=== PATIENT | female | born 1935 | race Caucasian/White ===

== ENCOUNTER 2017-04-08 18:04 | Inpatient (IN) | payer OTHER ==
[~2017-04-08 18:04] MED LIST: ETOMIDATE 20 MG INJ; ROCURONIUM 50 MG INJ
[2017-04-08] MEDS ORDERED: NORepinephrine 8MG/250 ML (PMX 250 ML IV (18:30)
[2017-04-08] MEDS: SOD CHLORIDE 0.9% 2,170 ML IV (18:40)
[2017-04-08 18:41] LABS: ADD MAN DIFF? NO
[2017-04-08 18:44] LABS: BASOPHIL # 0.1 10^3/ul (0.0-0.1); BASOPHILS % 0.4 % (0.0-2.0); EOSINOPHILS # 0.5 10^3/ul (0.0-0.5); EOSINOPHILS % 2.8 % (0.0-7.0); HEMATOCRIT 34.7 % (37.0-47.0); HEMOGLOBIN 11.9 g/dl (12.0-16.0); LYMPHOCYTES # 1.8 10^3/ul (0.8-2.9); LYMPHOCYTES % 10.7 % (15.0-51.0); MEAN CORPUSCULAR HEMOGLOBIN 29.5 pg (29.0-33.0); MEAN CORPUSCULAR HGB CONC 34.3 g/dl (32.0-37.0); MEAN CORPUSCULAR VOLUME 85.9 fl (82.0-101.0); MEAN PLATELET VOLUME 8.5 fl (7.4-10.4); MONOCYTE # 1.2 10^3/ul (0.3-0.9); MONOCYTES % 7.1 % (0.0-11.0); NEUTROPHILS % 77.7 % (39.0-77.0); PLATELET COUNT 335 10^3/UL (140-415); RED BLOOD COUNT 4.04 10^6/ul (4.20-5.40); RED CELL DISTRIBUTION WIDTH 14.4 % (11.5-14.5)
[2017-04-08 18:44] LABS: WHITE BLOOD COUNT 16.7 10^3/ul (4.8-10.8)
[2017-04-08 18:53] LABS: ADD UMIC YES; UR ASCORBIC ACID NEGATIVE (NEGATIVE); UR BILIRUBIN (Dip) NEGATIVE (NEGATIVE); UR BLOOD (Dip) 1+ mg/dL (NEGATIVE); UR CLARITY CLEAR (CLEAR); UR COLOR YELLOW (YELLOW); UR GLUCOSE (Dip) NEGATIVE (NEGATIVE); UR KETONES (Dip) NEGATIVE (NEGATIVE); UR LEUKOCYTE ESTERASE (Dip) NEGATIVE Leu/ul (NEGATIVE); UR NITRITE (Dip) NEGATIVE (NEGATIVE); UR RBC 1 /HPF (0-5); UR SPECIFIC GRAVITY (Dip) 1.006 (1.003-1.030); UR TOTAL PROTEIN (Dip) NEGATIVE (NEGATIVE); UR UROBILINOGEN (Dip) NEGATIVE (NEGATIVE); UR WBC 1 /HPF (0-5)
[2017-04-08 19:02] LABS: AADO2 Arterial 182.9 mmHg (7.0-24.0); Allen Test ACCEPTAB; Arterial Blood Gas Oxygen Sat 99.4 mmHG (95.0-100.0); Arterial COHb 0.3 % (0.0-3.0); Arterial Fraction of Oxyhgb 98.9 % (93.0-99.0); Arterial HCO3 24.8 mmol/L (22.0-26.0); Arterial MetHb 0.2 % (0.0-1.5); Arterial Total Hemglobin 10.5 g/dl (12.0-18.0); Arterial pCO2 32.4 mmhg (35-45); MODE VENT - AC; Site Left Radial
[2017-04-08 19:06] LABS: INR 1.02; PROTIME 13.5 Sec (11.9-14.9); PT RATIO 1.1
[2017-04-08 19:08] LABS: ALANINE AMINOTRANSFERASE 27 IU/L (13-69); ALBUMIN 3.1 g/dl (3.3-4.9); ALBUMIN/GLOBULIN RATIO 0.96; ALKALINE PHOSPHATASE 75 IU/L (42-121); ANION GAP 12 (8-16); ASPARTATE AMINO TRANSFERASE 23 IU/L (15-46); BILIRUBIN,INDIRECT 0.2 mg/dl (0-1.1); BILIRUBIN,TOTAL 0.2 mg/dl (0.2-1.3); BLOOD UREA NITROGEN 14 mg/dl (7-20); CALCIUM 8.5 mg/dl (8.4-10.2); CARBON DIOXIDE 32 mmol/L (21-31); CHLORIDE 81 mmol/L (97-110); CREATININE 0.79 mg/dl (0.44-1.00); GLUCOSE 124 mg/dl (70-220); POTASSIUM 3.8 mmol/L (3.5-5.1); SODIUM 121 mmol/L (135-144); TOTAL PROTEIN 6.3 g/dl (6.1-8.1)
[2017-04-08 19:14] LABS: PARTIAL THROMBOPLASTIN TIME 32.1 Sec (25.0-35.0)
[2017-04-08 19:22] LABS: TROPONIN-I < 0.012 ng/ml (0.00-0.12)
[2017-04-08] MEDS: VANCOMYCIN 1 GM (PMX) 250 ML IVPB (19:30)
[2017-04-08] MEDS: MEROPENEM 500MG/50 ML (PMX) 50 ML IVPB (19:45)
[2017-04-08] MEDS: SOD CHLORIDE 0.9% 1,000 ML IV (20:07)
[2017-04-08 20:30] LABS: LACTIC ACID 0.7 mmol/L (0.5-2.0)
[2017-04-08] MEDS ORDERED: ACETAMINOPHEN 650 MG SUPP PR (20:30)
[2017-04-08] MEDS: MIDAZOLAM (DRIP) 50 mg/50 mL 50 ML IV (20:46)
[2017-04-08 21:09] LABS: B-TYPE NATRIURETIC PEPTIDE 171 PG/ML (0-450)
[2017-04-08 22:48] LABS: LACTIC ACID 1.7 mmol/L (0.5-2.0)
[2017-04-08 23:23] LABS: AADO2 Arterial 114.5 mmHg (7.0-24.0); Allen Test ACCEPTAB; Arterial Base Excess 0.4 mmol/L (-3.0-3); Arterial Blood Gas Oxygen Sat 98.3 mmHG (95.0-100.0); Arterial COHb 0.3 % (0.0-3.0); Arterial Fraction of Oxyhgb 97.8 % (93.0-99.0); Arterial HCO3 24.1 mmol/L (22.0-26.0); Arterial MetHb 0.2 % (0.0-1.5); Arterial Total Hemglobin 11.4 g/dl (12.0-18.0); Arterial pCO2 35.6 mmhg (35-45); MODE VENT - AC; Site Left Radial
[2017-04-09 00:01] LABS: ANION GAP 11 (8-16); BLOOD UREA NITROGEN 12 mg/dl (7-20); CALCIUM 7.6 mg/dl (8.4-10.2); CARBON DIOXIDE 24 mmol/L (21-31); CHLORIDE 95 mmol/L (97-110); CREATININE 0.53 mg/dl (0.44-1.00); GLUCOSE 134 mg/dl (70-220); POTASSIUM 3.2 mmol/L (3.5-5.1); SODIUM 127 mmol/L (135-144)
[2017-04-09 01:36] LABS: LACTIC ACID 1.7 mmol/L (0.5-2.0)
[2017-04-09 01:38] LABS: ANION GAP 10 (8-16); BLOOD UREA NITROGEN 12 mg/dl (7-20); CALCIUM 7.6 mg/dl (8.4-10.2); CARBON DIOXIDE 22 mmol/L (21-31); CHLORIDE 97 mmol/L (97-110); CREATININE 0.51 mg/dl (0.44-1.00); GLUCOSE 136 mg/dl (70-220); POTASSIUM 3.3 mmol/L (3.5-5.1); SODIUM 126 mmol/L (135-144)
[2017-04-09] MEDS ORDERED: VANCOMYCIN IV PER PHARMACY XX (02:30)
[2017-04-09 04:35] LABS: ANION GAP 10 (8-16); BLOOD UREA NITROGEN 12 mg/dl (7-20); CALCIUM 7.2 mg/dl (8.4-10.2); CARBON DIOXIDE 25 mmol/L (21-31); CHLORIDE 98 mmol/L (97-110); CREATININE 0.58 mg/dl (0.44-1.00); GLUCOSE 106 mg/dl (70-220); POTASSIUM 3.3 mmol/L (3.5-5.1); SODIUM 130 mmol/L (135-144)
[2017-04-09] MEDS: SOD CHLORIDE 0.9% 1,000 ML IV ×2 (06:46→20:03)
[2017-04-09] MEDS: PANTOPRAZOLE 40 MG INJ IV (06:52)
[2017-04-09 07:00] LABS: ANION GAP 10 (8-16); BLOOD UREA NITROGEN 12 mg/dl (7-20); CALCIUM 7.6 mg/dl (8.4-10.2); CARBON DIOXIDE 24 mmol/L (21-31); CHLORIDE 99 mmol/L (97-110); CREATININE 0.54 mg/dl (0.44-1.00); GLUCOSE 102 mg/dl (70-220); POTASSIUM 3.5 mmol/L (3.5-5.1); SODIUM 129 mmol/L (135-144)
[2017-04-09 07:19] LABS: AADO2 Arterial 84.5 mmHg (7.0-24.0); Allen Test ACCEPTAB; Arterial Base Excess -0.1 mmol/L (-3.0-3); Arterial Blood Gas Oxygen Sat 96.1 mmHG (95.0-100.0); Arterial COHb 0.1 % (0.0-3.0); Arterial Fraction of Oxyhgb 95.8 % (93.0-99.0); Arterial HCO3 23.9 mmol/L (22.0-26.0); Arterial MetHb 0.2 % (0.0-1.5); Arterial Total Hemglobin 11.4 g/dl (12.0-18.0); Arterial pCO2 36.6 mmhg (35-45); Blood Gas Low PEEP Setting 0 cmH2O; MODE VENT - AC; Site Left Radial
[2017-04-09 07:47] LABS: ANION GAP 9 (8-16); BLOOD UREA NITROGEN 12 mg/dl (7-20); CALCIUM 7.7 mg/dl (8.4-10.2); CARBON DIOXIDE 25 mmol/L (21-31); CHLORIDE 98 mmol/L (97-110); CREATININE 0.49 mg/dl (0.44-1.00); GLUCOSE 117 mg/dl (70-220); SODIUM 129 mmol/L (135-144)
[2017-04-09] MEDS ORDERED: VANCOMYCIN 1.5 GM in DEXTROSE 5% 500 ML IVPB (08:00)
[2017-04-09] MEDS: VANCOMYCIN 1.25 GM in SOD CHLORIDE 0.45% 250 ML IVPB (10:22)
[2017-04-09] MEDS ORDERED: POTASSIUM CHLORIDE 50 ML IVPB (11:00)
[2017-04-09] MEDS: POTASSIUM CHLORIDE 50 ML IVPB ×2 (11:41→15:13)
[2017-04-09] MEDS: MEROPENEM 1 GM/50ML(PMX) 50 ML IVPB ×2 (15:13→21:40)
[2017-04-09] MEDS: METHYLPREDNISOLONE 40 MG INJ IV ×2 (15:13→21:40)
[2017-04-09] MEDS: MIDAZOLAM (DRIP) 50 mg/50 mL 50 ML IV (21:48)
[2017-04-10] MEDS: METHYLPREDNISOLONE 40 MG INJ IV ×3 (05:02→21:42)
[2017-04-10] MEDS: PANTOPRAZOLE 40 MG INJ IV (05:02)
[2017-04-10 05:55] LABS: ADD MAN DIFF? NO
[2017-04-10 06:01] LABS: BASOPHILS % 0.2 % (0.0-2.0); HEMATOCRIT 31.4 % (37.0-47.0); HEMOGLOBIN 10.5 g/dl (12.0-16.0); LYMPHOCYTES % 7.7 % (15.0-51.0); MEAN CORPUSCULAR HEMOGLOBIN 28.7 pg (29.0-33.0); MEAN CORPUSCULAR HGB CONC 33.4 g/dl (32.0-37.0); MEAN CORPUSCULAR VOLUME 85.8 fl (82.0-101.0); MEAN PLATELET VOLUME 8.7 fl (7.4-10.4); MONOCYTE # 0.2 10^3/ul (0.3-0.9); MONOCYTES % 1.3 % (0.0-11.0); NEUTROPHIL # 11.4 10^3/ul (1.6-7.5); NEUTROPHILS % 89.6 % (39.0-77.0); PLATELET COUNT 194 10^3/UL (140-415); RED BLOOD COUNT 3.66 10^6/ul (4.20-5.40); RED CELL DISTRIBUTION WIDTH 14.9 % (11.5-14.5)
[2017-04-10 06:01] LABS: WHITE BLOOD COUNT 12.7 10^3/ul (4.8-10.8)
[2017-04-10 06:25] LABS: ANION GAP 9 (8-16); BLOOD UREA NITROGEN 10 mg/dl (7-20); CALCIUM 7.7 mg/dl (8.4-10.2); CARBON DIOXIDE 26 mmol/L (21-31); CHLORIDE 101 mmol/L (97-110); CREATININE 0.54 mg/dl (0.44-1.00); GLUCOSE 151 mg/dl (70-220); MAGNESIUM 1.8 mg/dl (1.7-2.5); PHOSPHORUS 3.1 mg/dl (2.5-4.9); SODIUM 133 mmol/L (135-144)
[2017-04-10 08:20] LABS: AADO2 Arterial 63.9 mmHg (7.0-24.0); Allen Test ACCEPTAB; Arterial Base Excess 2.3 mmol/L (-3.0-3); Arterial COHb 0.1 % (0.0-3.0); Arterial HCO3 25.2 mmol/L (22.0-26.0); Arterial MetHb 0 % (0.0-1.5); Arterial Total Hemglobin 12.1 g/dl (12.0-18.0); Arterial pCO2 34.2 mmhg (35-45); Blood Gas Low PEEP Setting 0 cmH2O; MODE VENT - AC; Site Right Radial
[2017-04-10] MEDS: MEROPENEM 1 GM/50ML(PMX) 50 ML IVPB ×2 (08:54→21:01)
[2017-04-10] MEDS: VANCOMYCIN 1.25 GM in SOD CHLORIDE 0.45% 250 ML IVPB (08:54)
[2017-04-10] MEDS: MAGNESIUM SULFATE 1 GM/D5W 100 ML IVPB (08:54)
[2017-04-10] MEDS: POTASSIUM CHLORIDE 50 ML IVPB ×3 (11:00→13:00)
[2017-04-10] MEDS: SOD CHLORIDE 0.9% 1,000 ML IV ×2 (18:00→21:43)
[2017-04-10] MEDS: ALBUTEROL HFA 8 GM INHALER INH (20:04)
[2017-04-10] MEDS: MIDAZOLAM (DRIP) 50 mg/50 mL 50 ML IV (21:02)
[2017-04-11] MEDS: PANTOPRAZOLE 40 MG INJ IV (05:32)
[2017-04-11] MEDS: METHYLPREDNISOLONE 40 MG INJ IV ×3 (05:32→21:51)
[2017-04-11 05:46] LABS: ADD MAN DIFF? NO
[2017-04-11 05:52] LABS: WHITE BLOOD COUNT 19.9 10^3/ul (4.8-10.8)
[2017-04-11 05:52] LABS: BASOPHILS % 0.1 % (0.0-2.0); HEMATOCRIT 30.8 % (37.0-47.0); HEMOGLOBIN 10.4 g/dl (12.0-16.0); LYMPHOCYTES # 1.3 10^3/ul (0.8-2.9); LYMPHOCYTES % 6.4 % (15.0-51.0); MEAN CORPUSCULAR HEMOGLOBIN 29.3 pg (29.0-33.0); MEAN CORPUSCULAR HGB CONC 33.8 g/dl (32.0-37.0); MEAN CORPUSCULAR VOLUME 86.8 fl (82.0-101.0); MEAN PLATELET VOLUME 9.6 fl (7.4-10.4); MONOCYTE # 0.6 10^3/ul (0.3-0.9); NEUTROPHIL # 17.8 10^3/ul (1.6-7.5); NEUTROPHILS % 89.5 % (39.0-77.0); PLATELET COUNT 231 10^3/UL (140-415); RED BLOOD COUNT 3.55 10^6/ul (4.20-5.40); RED CELL DISTRIBUTION WIDTH 15.3 % (11.5-14.5)
[2017-04-11 06:41] LABS: ANION GAP 11 (8-16); BLOOD UREA NITROGEN 17 mg/dl (7-20); CALCIUM 7.9 mg/dl (8.4-10.2); CARBON DIOXIDE 28 mmol/L (21-31); CHLORIDE 104 mmol/L (97-110); CREATININE 0.49 mg/dl (0.44-1.00); GLUCOSE 162 mg/dl (70-220); MAGNESIUM 2.1 mg/dl (1.7-2.5); PHOSPHORUS 2.3 mg/dl (2.5-4.9); POTASSIUM 4.5 mmol/L (3.5-5.1); SODIUM 138 mmol/L (135-144)
[2017-04-11] MEDS: MEROPENEM 1 GM/50ML(PMX) 50 ML IVPB ×2 (08:48→21:51)
[2017-04-11] MEDS: VANCOMYCIN 1.25 GM in SOD CHLORIDE 0.45% 250 ML IVPB (09:18)
[2017-04-11] MEDS: SOD CHLORIDE 0.9% 1,000 ML IV (10:16)
[2017-04-11] MEDS ORDERED: morphine 2 MG INJ (10:51)
[2017-04-11] MEDS: morphine 2 MG INJ IV (10:54)
[2017-04-11] MEDS: LORAZEPAM 2 MG INJ IV ×2 (19:36→23:20)
[2017-04-11] MEDS: ALBUTEROL HFA 8 GM INHALER INH (19:50)
[2017-04-12] MEDS: METHYLPREDNISOLONE 40 MG INJ IV ×3 (05:44→21:16)
[2017-04-12] MEDS: PANTOPRAZOLE 40 MG INJ IV (05:44)
[2017-04-12 06:22] LABS: ADD MAN DIFF? NO
[2017-04-12 06:30] LABS: BASOPHILS % 0.1 % (0.0-2.0); HEMATOCRIT 32.1 % (37.0-47.0); HEMOGLOBIN 10.7 g/dl (12.0-16.0); LYMPHOCYTES # 0.9 10^3/ul (0.8-2.9); LYMPHOCYTES % 6.2 % (15.0-51.0); MEAN CORPUSCULAR HEMOGLOBIN 29.2 pg (29.0-33.0); MEAN CORPUSCULAR HGB CONC 33.3 g/dl (32.0-37.0); MEAN CORPUSCULAR VOLUME 87.5 fl (82.0-101.0); MEAN PLATELET VOLUME 9.7 fl (7.4-10.4); MONOCYTE # 0.6 10^3/ul (0.3-0.9); MONOCYTES % 4.2 % (0.0-11.0); NEUTROPHIL # 13.2 10^3/ul (1.6-7.5); NEUTROPHILS % 88.4 % (39.0-77.0); PLATELET COUNT 207 10^3/UL (140-415); RED BLOOD COUNT 3.67 10^6/ul (4.20-5.40); RED CELL DISTRIBUTION WIDTH 15.3 % (11.5-14.5)
[2017-04-12 06:30] LABS: WHITE BLOOD COUNT 14.9 10^3/ul (4.8-10.8)
[2017-04-12 07:02] LABS: ANION GAP 10 (8-16); BLOOD UREA NITROGEN 18 mg/dl (7-20); CALCIUM 7.9 mg/dl (8.4-10.2); CARBON DIOXIDE 29 mmol/L (21-31); CREATININE 0.41 mg/dl (0.44-1.00); GLUCOSE 171 mg/dl (70-220); MAGNESIUM 1.9 mg/dl (1.7-2.5); PHOSPHORUS 2.4 mg/dl (2.5-4.9); POTASSIUM 4.1 mmol/L (3.5-5.1); SODIUM 138 mmol/L (135-144)
[2017-04-12 07:12] LABS: CHLORIDE 103 mmol/L (97-110)
[2017-04-12 08:52] LABS: VANCOMYCIN,TROUGH 6.2 ug/ml (10.0-20.0)
[2017-04-12] MEDS: MEROPENEM 1 GM/50ML(PMX) 50 ML IVPB ×2 (09:27→21:16)
[2017-04-12] MEDS: VANCOMYCIN 1.25 GM in SOD CHLORIDE 0.45% 250 ML IVPB (09:27)
[2017-04-12] MEDS: SOD CHLORIDE 0.9% 1,000 ML IV (09:28)
[2017-04-12 11:06] LABS: Allen Test ACCEPTAB; Arterial Base Excess 4.9 mmol/L (-3.0-3); Arterial Blood Gas Oxygen Sat 97.1 mmHG (95.0-100.0); Arterial COHb 0.3 % (0.0-3.0); Arterial Fraction of Oxyhgb 96.6 % (93.0-99.0); Arterial HCO3 28.9 mmol/L (22.0-26.0); Arterial MetHb 0.2 % (0.0-1.5); Arterial pCO2 40.2 mmhg (35-45); Blood Gas PS 10; MODE VENT - CPAP; Site Right Radial
[2017-04-12] MEDS: VANCOMYCIN 750 MG in DEXTROSE 5% 150 ML IVPB (23:14)
[2017-04-13 04:55] LABS: ADD MAN DIFF? NO
[2017-04-13 04:59] LABS: BASOPHILS % 0.1 % (0.0-2.0); HEMATOCRIT 31.1 % (37.0-47.0); HEMOGLOBIN 10.5 g/dl (12.0-16.0); LYMPHOCYTES # 1.1 10^3/ul (0.8-2.9); LYMPHOCYTES % 9.5 % (15.0-51.0); MEAN CORPUSCULAR HEMOGLOBIN 29.3 pg (29.0-33.0); MEAN CORPUSCULAR HGB CONC 33.8 g/dl (32.0-37.0); MEAN CORPUSCULAR VOLUME 86.9 fl (82.0-101.0); MEAN PLATELET VOLUME 9.8 fl (7.4-10.4); MONOCYTE # 0.6 10^3/ul (0.3-0.9); NEUTROPHIL # 9.5 10^3/ul (1.6-7.5); NEUTROPHILS % 83.7 % (39.0-77.0); PLATELET COUNT 197 10^3/UL (140-415); RED BLOOD COUNT 3.58 10^6/ul (4.20-5.40); RED CELL DISTRIBUTION WIDTH 15.3 % (11.5-14.5)
[2017-04-13 04:59] LABS: WHITE BLOOD COUNT 11.3 10^3/ul (4.8-10.8)
[2017-04-13 05:28] LABS: ALBUMIN 2.4 g/dl (3.3-4.9); ANION GAP 7 (8-16); BLOOD UREA NITROGEN 18 mg/dl (7-20); CALCIUM 7.8 mg/dl (8.4-10.2); CARBON DIOXIDE 30 mmol/L (21-31); CHLORIDE 102 mmol/L (97-110); CREATININE 0.38 mg/dl (0.44-1.00); GLUCOSE 126 mg/dl (70-220); MAGNESIUM 1.9 mg/dl (1.7-2.5); PHOSPHORUS 2.7 mg/dl (2.5-4.9); POTASSIUM 4.1 mmol/L (3.5-5.1); SODIUM 135 mmol/L (135-144)
[2017-04-13] MEDS: PANTOPRAZOLE 40 MG INJ IV (06:10)
[2017-04-13] MEDS: METHYLPREDNISOLONE 40 MG INJ IV ×2 (06:10→21:11)
[2017-04-13] MEDS: MEROPENEM 1 GM/50ML(PMX) 50 ML IVPB ×2 (08:48→21:12)
[2017-04-13] MEDS: POLYETHYLENE GLYCOL 17 GM PACKET GTB (08:48)
[2017-04-13] MEDS: SOD CHLORIDE 0.9% 1,000 ML IV (09:24)
[2017-04-13] MEDS: VANCOMYCIN 750 MG in DEXTROSE 5% 150 ML IVPB ×2 (11:28→22:37)
[2017-04-13] MEDS ORDERED: ALBUTEROL/IPRATROPIUM (NEB) 3 ML AMP (12:18)
[2017-04-13] MEDS: ALBUTEROL/IPRATROPIUM (NEB) 3 ML AMP HHN ×2 (12:21→19:11)
[2017-04-13 16:52] LABS: AADO2 Arterial 78.7 mmHg (7.0-24.0); AADO2 Arterial 80.6 mmHg (7.0-24.0); Allen Test ACCEPTAB; Arterial Base Excess 4.8 mmol/L (-3.0-3); Arterial Base Excess 6.4 mmol/L (-3.0-3); Arterial Blood Gas Oxygen Sat 95.9 mmHG (95.0-100.0); Arterial COHb 0.3 % (0.0-3.0); Arterial Fraction of Oxyhgb 95.4 % (93.0-99.0); Arterial Fraction of Oxyhgb 96.6 % (93.0-99.0); Arterial HCO3 27.7 mmol/L (22.0-26.0); Arterial HCO3 30.9 mmol/L (22.0-26.0); Arterial MetHb 0.1 % (0.0-1.5); Arterial MetHb 0.2 % (0.0-1.5); Arterial Total Hemglobin 11.1 g/dl (12.0-18.0); Arterial Total Hemglobin 13.1 g/dl (12.0-18.0); Arterial pCO2 34.9 mmhg (35-45); Arterial pCO2 43.9 mmhg (35-45); Blood Gas PS 10; MODE VENT - AC; MODE VENT - CPAP; Site Right Radial
[2017-04-13] MEDS: DEXTROSE 5%-0.45% NACL 1,000 ML IV (17:26)
[2017-04-14] MEDS: ALBUTEROL/IPRATROPIUM (NEB) 3 ML AMP HHN ×4 (00:59→21:01)
[2017-04-14] MEDS: SOD CHLORIDE 0.9% 1,000 ML IV (04:28)
[2017-04-14 05:03] LABS: ADD MAN DIFF? NO
[2017-04-14 05:07] LABS: BASOPHILS % 0.2 % (0.0-2.0); HEMATOCRIT 37.2 % (37.0-47.0); HEMOGLOBIN 12.5 g/dl (12.0-16.0); LYMPHOCYTES # 0.9 10^3/ul (0.8-2.9); LYMPHOCYTES % 7.2 % (15.0-51.0); MEAN CORPUSCULAR HGB CONC 33.6 g/dl (32.0-37.0); MEAN CORPUSCULAR VOLUME 86.3 fl (82.0-101.0); MONOCYTE # 0.5 10^3/ul (0.3-0.9); MONOCYTES % 3.7 % (0.0-11.0); NEUTROPHIL # 10.5 10^3/ul (1.6-7.5); NEUTROPHILS % 86.3 % (39.0-77.0); PLATELET COUNT 256 10^3/UL (140-415); RED BLOOD COUNT 4.31 10^6/ul (4.20-5.40); RED CELL DISTRIBUTION WIDTH 15.3 % (11.5-14.5)
[2017-04-14 05:07] LABS: WHITE BLOOD COUNT 12.2 10^3/ul (4.8-10.8)
[2017-04-14 05:23] LABS: ALBUMIN 2.8 g/dl (3.3-4.9); ANION GAP 14 (8-16); BLOOD UREA NITROGEN 14 mg/dl (7-20); CALCIUM 8.1 mg/dl (8.4-10.2); CARBON DIOXIDE 31 mmol/L (21-31); CHLORIDE 98 mmol/L (97-110); GLUCOSE 132 mg/dl (70-220); MAGNESIUM 1.9 mg/dl (1.7-2.5); PHOSPHORUS 3.5 mg/dl (2.5-4.9); POTASSIUM 3.8 mmol/L (3.5-5.1); SODIUM 139 mmol/L (135-144)
[2017-04-14] MEDS: PANTOPRAZOLE 40 MG INJ IV (05:54)
[2017-04-14] MEDS: DEXTROSE 5%-0.45% NACL 1,000 ML IV ×2 (06:20→19:40)
[2017-04-14] MEDS: POLYETHYLENE GLYCOL 17 GM PACKET GTB (09:00)
[2017-04-14] MEDS: METHYLPREDNISOLONE 40 MG INJ IV ×2 (09:38→20:51)
[2017-04-14] MEDS: MEROPENEM 1 GM/50ML(PMX) 50 ML IVPB ×2 (09:38→20:51)
[2017-04-14 11:25] LABS: VANCOMYCIN,TROUGH 11.7 ug/ml (10.0-20.0)
[2017-04-14] MEDS: VANCOMYCIN 750 MG in DEXTROSE 5% 150 ML IVPB ×2 (11:43→23:03)
[2017-04-15] MEDS: ALBUTEROL/IPRATROPIUM (NEB) 3 ML AMP HHN ×4 (02:36→20:03)
[2017-04-15] MEDS: PANTOPRAZOLE 40 MG INJ IV (05:22)
[2017-04-15] MEDS: LORAZEPAM 2 MG INJ IV (05:22)
[2017-04-15 06:16] LABS: ADD MAN DIFF? NO
[2017-04-15 06:27] LABS: WHITE BLOOD COUNT 12.3 10^3/ul (4.8-10.8)
[2017-04-15 06:27] LABS: BASOPHIL # 0.1 10^3/ul (0.0-0.1); BASOPHILS % 0.5 % (0.0-2.0); HEMATOCRIT 39.2 % (37.0-47.0); HEMOGLOBIN 12.9 g/dl (12.0-16.0); LYMPHOCYTES # 1.1 10^3/ul (0.8-2.9); MEAN CORPUSCULAR HEMOGLOBIN 28.8 pg (29.0-33.0); MEAN CORPUSCULAR HGB CONC 32.9 g/dl (32.0-37.0); MEAN CORPUSCULAR VOLUME 87.5 fl (82.0-101.0); MEAN PLATELET VOLUME 9.6 fl (7.4-10.4); MONOCYTE # 0.7 10^3/ul (0.3-0.9); MONOCYTES % 5.7 % (0.0-11.0); NEUTROPHIL # 10.1 10^3/ul (1.6-7.5); NEUTROPHILS % 82.3 % (39.0-77.0); PLATELET COUNT 309 10^3/UL (140-415); RED BLOOD COUNT 4.48 10^6/ul (4.20-5.40)
[2017-04-15 06:48] LABS: ALBUMIN 2.7 g/dl (3.3-4.9); ANION GAP 10 (8-16); BLOOD UREA NITROGEN 17 mg/dl (7-20); CALCIUM 7.9 mg/dl (8.4-10.2); CARBON DIOXIDE 32 mmol/L (21-31); CHLORIDE 97 mmol/L (97-110); CREATININE 0.42 mg/dl (0.44-1.00); GLUCOSE 144 mg/dl (70-220); PHOSPHORUS 3.5 mg/dl (2.5-4.9); POTASSIUM 3.6 mmol/L (3.5-5.1); SODIUM 135 mmol/L (135-144)
[2017-04-15] MEDS: DEXTROSE 5%-0.45% NACL 1,000 ML IV ×3 (09:00→21:26)
[2017-04-15] MEDS: POLYETHYLENE GLYCOL 17 GM PACKET GTB ×2 (09:00→09:33)
[2017-04-15] MEDS: METHYLPREDNISOLONE 40 MG INJ IV ×2 (09:33→20:46)
[2017-04-15] MEDS: MEROPENEM 1 GM/50ML(PMX) 50 ML IVPB ×2 (09:33→21:26)
[2017-04-15] MEDS: ENOXAPARIN 40 MG/0.4 ML SYG SC (10:00)
[2017-04-15] MEDS: VANCOMYCIN 750 MG in DEXTROSE 5% 150 ML IVPB ×2 (11:25→22:40)
[2017-04-16] MEDS: ALBUTEROL/IPRATROPIUM (NEB) 3 ML AMP HHN ×4 (02:35→20:33)
[2017-04-16] MEDS: PANTOPRAZOLE 40 MG INJ IV (05:20)
[2017-04-16 06:53] LABS: ADD MAN DIFF? NO
[2017-04-16 06:57] LABS: BASOPHILS % 0.3 % (0.0-2.0); HEMATOCRIT 38.4 % (37.0-47.0); HEMOGLOBIN 12.7 g/dl (12.0-16.0); LYMPHOCYTES % 6.8 % (15.0-51.0); MEAN CORPUSCULAR HEMOGLOBIN 28.9 pg (29.0-33.0); MEAN CORPUSCULAR HGB CONC 33.1 g/dl (32.0-37.0); MEAN CORPUSCULAR VOLUME 87.3 fl (82.0-101.0); MEAN PLATELET VOLUME 9.5 fl (7.4-10.4); MONOCYTE # 0.8 10^3/ul (0.3-0.9); MONOCYTES % 5.4 % (0.0-11.0); NEUTROPHIL # 12.6 10^3/ul (1.6-7.5); NEUTROPHILS % 85.4 % (39.0-77.0); PLATELET COUNT 304 10^3/UL (140-415); RED CELL DISTRIBUTION WIDTH 14.9 % (11.5-14.5)
[2017-04-16 06:57] LABS: WHITE BLOOD COUNT 14.8 10^3/ul (4.8-10.8)
[2017-04-16 07:34] LABS: ANION GAP 8 (8-16); BLOOD UREA NITROGEN 21 mg/dl (7-20); CALCIUM 7.9 mg/dl (8.4-10.2); CARBON DIOXIDE 31 mmol/L (21-31); CHLORIDE 95 mmol/L (97-110); CREATININE 0.41 mg/dl (0.44-1.00); GLUCOSE 211 mg/dl (70-220); POTASSIUM 3.7 mmol/L (3.5-5.1); SODIUM 130 mmol/L (135-144)
[2017-04-16] MEDS: POLYETHYLENE GLYCOL 17 GM PACKET GTB (09:00)
[2017-04-16] MEDS: METHYLPREDNISOLONE 40 MG INJ IV (09:11)
[2017-04-16] MEDS: MEROPENEM 1 GM/50ML(PMX) 50 ML IVPB ×2 (09:14→20:22)
[2017-04-16] MEDS: ENOXAPARIN 40 MG/0.4 ML SYG SC (10:21)
[2017-04-16] MEDS: VANCOMYCIN 750 MG in DEXTROSE 5% 150 ML IVPB (11:15)
[2017-04-16] MEDS: DEXTROSE 5%-0.45% NACL 1,000 ML IV ×2 (11:17→23:26)
[2017-04-16] MEDS: BARIUM SULFATE 135 ML (E-Z HD) PO (12:09)
[2017-04-16] MEDS ORDERED: ONDANSETRON 4 MG INJ IV (17:30)
[2017-04-16 18:41] LABS: LACTIC ACID 1.7 mmol/L (0.5-2.0)
[2017-04-17] MEDS: DEXTROSE 5%-0.45% NACL 1,000 ML IV ×2 (01:00→14:08)
[2017-04-17] MEDS: ALBUTEROL/IPRATROPIUM (NEB) 3 ML AMP HHN ×4 (02:20→20:19)
[2017-04-17] MEDS: PANTOPRAZOLE 40 MG INJ IV (05:21)
[2017-04-17 07:41] LABS: ADD MAN DIFF? NO
[2017-04-17 07:44] LABS: BASOPHILS % 0.2 % (0.0-2.0); EOSINOPHILS # 0.3 10^3/ul (0.0-0.5); EOSINOPHILS % 1.9 % (0.0-7.0); HEMATOCRIT 36.1 % (37.0-47.0); LYMPHOCYTES # 1.3 10^3/ul (0.8-2.9); LYMPHOCYTES % 9.6 % (15.0-51.0); MEAN CORPUSCULAR HEMOGLOBIN 29.3 pg (29.0-33.0); MEAN CORPUSCULAR HGB CONC 33.2 g/dl (32.0-37.0); MEAN CORPUSCULAR VOLUME 88.3 fl (82.0-101.0); MEAN PLATELET VOLUME 9.4 fl (7.4-10.4); MONOCYTES % 6.9 % (0.0-11.0); NEUTROPHIL # 10.9 10^3/ul (1.6-7.5); NEUTROPHILS % 77.5 % (39.0-77.0); PLATELET COUNT 263 10^3/UL (140-415); RED BLOOD COUNT 4.09 10^6/ul (4.20-5.40); RED CELL DISTRIBUTION WIDTH 15.8 % (11.5-14.5)
[2017-04-17 08:02] LABS: LACTIC ACID 1.4 mmol/L (0.5-2.0)
[2017-04-17 08:04] LABS: ANION GAP 4 (8-16); BLOOD UREA NITROGEN 20 mg/dl (7-20); CALCIUM 7.5 mg/dl (8.4-10.2); CARBON DIOXIDE 35 mmol/L (21-31); CHLORIDE 98 mmol/L (97-110); CREATININE 0.39 mg/dl (0.44-1.00); GLUCOSE 127 mg/dl (70-220); POTASSIUM 3.8 mmol/L (3.5-5.1); SODIUM 133 mmol/L (135-144)
[2017-04-17] MEDS: MEROPENEM 1 GM/50ML(PMX) 50 ML IVPB ×2 (09:01→21:19)
[2017-04-17] MEDS: METHYLPREDNISOLONE 40 MG INJ IV (09:02)
[2017-04-17] MEDS: ENOXAPARIN 40 MG/0.4 ML SYG SC (09:03)
[2017-04-17] MEDS: POLYETHYLENE GLYCOL 17 GM PACKET GTB (09:12)
[2017-04-18] MEDS: BISACODYL 10 MG SUPP PR (00:25)
[2017-04-18] MEDS: ALBUTEROL/IPRATROPIUM (NEB) 3 ML AMP HHN ×4 (01:17→19:44)
[2017-04-18] MEDS: DEXTROSE 5%-0.45% NACL 1,000 ML IV ×3 (05:00→22:30)
[2017-04-18] MEDS: PANTOPRAZOLE 40 MG INJ IV (05:15)
[2017-04-18 07:38] LABS: ADD MAN DIFF? NO
[2017-04-18 07:46] LABS: BASOPHIL # 0.1 10^3/ul (0.0-0.1); BASOPHILS % 0.3 % (0.0-2.0); EOSINOPHILS # 0.4 10^3/ul (0.0-0.5); EOSINOPHILS % 2.3 % (0.0-7.0); HEMATOCRIT 36.6 % (37.0-47.0); LYMPHOCYTES # 1.4 10^3/ul (0.8-2.9); MEAN CORPUSCULAR HEMOGLOBIN 29.1 pg (29.0-33.0); MEAN CORPUSCULAR HGB CONC 32.8 g/dl (32.0-37.0); MEAN CORPUSCULAR VOLUME 88.6 fl (82.0-101.0); MEAN PLATELET VOLUME 9.8 fl (7.4-10.4); MONOCYTE # 1.1 10^3/ul (0.3-0.9); MONOCYTES % 6.9 % (0.0-11.0); NEUTROPHILS % 78.6 % (39.0-77.0); PLATELET COUNT 288 10^3/UL (140-415); RED BLOOD COUNT 4.13 10^6/ul (4.20-5.40); RED CELL DISTRIBUTION WIDTH 15.6 % (11.5-14.5)
[2017-04-18 07:46] LABS: WHITE BLOOD COUNT 15.3 10^3/ul (4.8-10.8)
[2017-04-18 08:02] LABS: ANION GAP 7 (8-16); BLOOD UREA NITROGEN 17 mg/dl (7-20); CALCIUM 7.7 mg/dl (8.4-10.2); CARBON DIOXIDE 33 mmol/L (21-31); CHLORIDE 96 mmol/L (97-110); CREATININE 0.39 mg/dl (0.44-1.00); GLUCOSE 112 mg/dl (70-220); POTASSIUM 4.1 mmol/L (3.5-5.1); SODIUM 132 mmol/L (135-144)
[2017-04-18] MEDS: POLYETHYLENE GLYCOL 17 GM PACKET GTB ×2 (08:23→08:32)
[2017-04-18] MEDS: MEROPENEM 1 GM/50ML(PMX) 50 ML IVPB ×2 (08:23→20:15)
[2017-04-18] MEDS: ENOXAPARIN 40 MG/0.4 ML SYG SC (08:30)
[2017-04-19] MEDS: ALBUTEROL/IPRATROPIUM (NEB) 3 ML AMP HHN ×3 (01:32→14:06)
[2017-04-19] MEDS: PANTOPRAZOLE 40 MG INJ IV (05:48)
[2017-04-19] MEDS: DEXTROSE 5%-0.45% NACL 1,000 ML IV ×2 (05:58→09:23)
[2017-04-19 06:25] LABS: ADD MAN DIFF? NO
[2017-04-19 06:50] LABS: BASOPHILS % 0.2 % (0.0-2.0); EOSINOPHILS # 0.5 10^3/ul (0.0-0.5); EOSINOPHILS % 3.7 % (0.0-7.0); HEMATOCRIT 36.2 % (37.0-47.0); HEMOGLOBIN 12.2 g/dl (12.0-16.0); LYMPHOCYTES # 1.1 10^3/ul (0.8-2.9); LYMPHOCYTES % 8.8 % (15.0-51.0); MEAN CORPUSCULAR HEMOGLOBIN 29.4 pg (29.0-33.0); MEAN CORPUSCULAR HGB CONC 33.7 g/dl (32.0-37.0); MEAN CORPUSCULAR VOLUME 87.2 fl (82.0-101.0); MEAN PLATELET VOLUME 9.7 fl (7.4-10.4); MONOCYTE # 0.7 10^3/ul (0.3-0.9); MONOCYTES % 5.5 % (0.0-11.0); NEUTROPHIL # 9.9 10^3/ul (1.6-7.5); NEUTROPHILS % 78.9 % (39.0-77.0); PLATELET COUNT 269 10^3/UL (140-415); RED BLOOD COUNT 4.15 10^6/ul (4.20-5.40); RED CELL DISTRIBUTION WIDTH 15.7 % (11.5-14.5)
[2017-04-19 06:50] LABS: WHITE BLOOD COUNT 12.5 10^3/ul (4.8-10.8)
[2017-04-19 07:03] LABS: ANION GAP 6 (8-16); BLOOD UREA NITROGEN 10 mg/dl (7-20); CALCIUM 7.2 mg/dl (8.4-10.2); CARBON DIOXIDE 32 mmol/L (21-31); CHLORIDE 92 mmol/L (97-110); GLUCOSE 96 mg/dl (70-220); MAGNESIUM 1.7 mg/dl (1.7-2.5); POTASSIUM 3.9 mmol/L (3.5-5.1); SODIUM 126 mmol/L (135-144)
[2017-04-19] MEDS: MEROPENEM 1 GM/50ML(PMX) 50 ML IVPB (09:23)
[2017-04-19] MEDS: ENOXAPARIN 40 MG/0.4 ML SYG SC (09:34)
[2017-04-19] MEDS: POLYETHYLENE GLYCOL 17 GM PACKET GTB (09:36)
[2017-04-19] MEDS: morphine 2 MG INJ IV (09:45)
[2017-04-20] MEDS ORDERED: INFLUENZA VIRUS VACCINE 0.5 ML (DISPENSING) IM* (09:00)
== END 2017-04-19 18:38 | DRG 870 ==
LOC: TEL 04-14 18:24 → ICU 20:11 → E/R 18:04
PROC: 02HV33Z Insertion of Infusion Device into Superior Vena Cava, Percutaneous Approach (ICD-10-PCS; principal; 2017-04-08)
PROC: 0BH17EZ Insertion of Endotracheal Airway into Trachea, Via Natural or Artificial Opening (ICD-10-PCS; 2017-04-08)
PROC: 5A1955Z Respiratory Ventilation, Greater than 96 Consecutive Hours (ICD-10-PCS; 2017-04-18)
DX: A41.9 Sepsis, unspecified organism (principal); J96.01 Acute respiratory failure with hypoxia; R65.21 Severe sepsis with septic shock; J18.9 Pneumonia, unspecified organism; J84.10 Pulmonary fibrosis, unspecified; G93.41 Metabolic encephalopathy; E86.1 Hypovolemia; E87.1 Hypo-osmolality and hyponatremia; E87.6 Hypokalemia; R13.10 Dysphagia, unspecified; Y95 Nosocomial condition
CPT/HCPCS: 31500; 36415; 36600; 70450; 71045; 74230; 76937; 80048; 80053; 80069; 80202; 81001; 82803; 83605; 83735; 83880; 84100; 84484; 85025; 85610; 85730; 87040; 87081; 87086; 92526; 92610; 92611; 93005; 94002; 94003; 94640; 94664; 94667; 94668; 94770; 96374; 96375; 97110; 97162; 97530; 99291-25